=== PATIENT | male | born 1990 | race Caucasian/White ===

== ENCOUNTER 2025-08-25 11:01 | Outpatient (CLI) | payer MEDICAID, SELFPAY ==
--- OUTSIDE RECORDS SUMMARY | 2025-07-11 09:00 | XMS_ITS | Encounter Summary ---
Author Organization [place] [address] Care Team Providers Care Special Needs Babysitter Name Role Phone Rosita Perkins MD Primary Care Provider [phone] Reason for Referral * Consultation (Routine) - Pending Review Specialty Diagnoses / Procedures Referred By Contac t Referred To Contact Otolaryngology Diagnoses Seasonal allergic rhinitis, unspecified trigger Rosita Perkins MD [address] [place] [address] Phone: tel: fax: [facility] [address] [address] Phone: tel: fax: Referral ID Status Reason Start Date Expiration Date V isits Requested Visits Authorized [id number] Pending Review 07/11/2025 07/11/2026 99 99 Reason for Visit * Reason Comments Hypertension Encounter Details Date Type Department Care Team (Late st Contact Info) Description 07/11/2025 9:00 AM EDT Office Visit [facility] [address] [place] [address] Rosita Perkins MD [address] [facility] [address] Essential hypertension (Primary Dx); Seasonal allergic rhinitis, unspecified trigger Social History Tobacco Use Types Packs/Day Years Used Date Smoking Tobacco: Never Smokeless Tobacco: Current Chew Tobacco Cessation:Ready to Q uit: Not Asked; Counseling Given: Not Answered Comments:chews 2 cans a day for the last 12 years Alcohol Use Standard Drinks/Week Comments Not Currently 0 (1 standard drink = 0.6 oz pur e alcohol) 3-4 days a week Overall Financial Resource Strain (CARDIA) Answe r Date Recorded How hard is it for you to pa y for the very basics like food, housing, medical care, and heating? Not hard at all 01/20/2021 PHQ-2 Answer Date Recorded PHQ-2 Total Score 0 03/07/2025 Hunger Vital Sign Answer Date Recorded Within the past 12 months, y ou worried that your food would run out before you got the money to buy more. Never true 01/21/20 21 Within the past 12 months, t he food you bought just didn't last and you didn't have money to get more. Never true 01/20/2021 PRAPARE - Transportation Answer Date Re corded In the past 12 months, has l ack of transportation kept you from medical appointments or from getting medications? No 01/04 In the past 12 months, has l ack of transportation kept you from meetings, work, or from getting things needed for daily living? No 01/20/2021 Sexually Active Control Partners Comments Yes Female monogamous Sex and Gender Information Value Date Recorded Sex Assigned at Not on file Legal Sex Male 11:59 PM EDT Gender Identity Not on file Sexual Orientation Not on file documented as of this encounter Last Filed Vital Signs Vital Sign Reading Time Taken Comments Blood Pressure 122/102 07/11/2025 8:58 AM EDT Pulse 80 07/11/2025 8:58 AM EDT Temperature - - Respiratory Rate - - Oxygen Saturation 98% 07/11/2025 8:58 AM EDT Inhaled Oxygen Concentration - - Weight 102.5 kg (226 lb) 07/11/2025 8:58 AM EDT Height 188 cm (6' 2 ) 07/11/2025 8:58 AM EDT Body Mass Index 29.02 07/11/2025 8:58 AM EDT documented in this encounter Functional Status * Is the person deaf or does he/she have serious difficulty hearing? Answer Date of Assessment Author No 03/07/2025 1:58 PM EDT MinhanupGenevieve luquesherie Priest SUKHWINDER * Is the person blind or does he/she have serious difficulty seeing even when wearing glasses? Answer Date of Assessment Author No 03/07/2025 1:58 PM EDT MinhanupGenevieve luquesherie Priest SUKHWINDER * Does this person have serious difficulty walking or climbing stairs? Answer Date of Assessment Author No 03/07/2025 1:58 PM EDT Justindeisyrebel Rosa Pirest SUKHWINDER * Does this person have difficulty dressing or bathing? Answer Date of Assessment Author No 03/07/2025 1:58 PM EDT Justinandrei Rosa Priest SUKHWINDER * Because of a physical, mental or emotional condition, does this person have difficulty doing errands alone such as visiting a doctor's office or shopping? Answer Date of Assessment Author No 03/07/2025 1:58 PM EDT Justinandrei Rosa Priest SUKHWINDER documented as of this encounter Mental Status * Because of a physical, mental or emotional condition, does this person have serious difficulty concentrating, remembering or making decisions? Answer Entry Date Author No 03/07/2025 1:58 PM EDT Justinandrei Rosa Priest SUKHWINDER documented in this encounter Ordered Prescriptions Prescription Sig Dispense Quantity Refills Last Filled Start Date End Date lisinopriL (PRINIVIL;ZESTRIL) 10 mg Oral TabletIndications:E ssential hypertension Take 1 Tablet by mouth daily. 30 Tablet 07/11/2025 documented in this encounter Progress Notes * Rosita Perkins MD - 07/11/2025 9:00 AM EDT Vitals: 07/11/25 0858 BP: (!) 122/102 Pulse: 80 SpO2: 98% Weight: 226 lb (102.5 kg) Height: 6' 2 (1.88 m) Body mass index is 29.02 kg/m??. SUBJECTIVE: Chief Complaint Patient presents with Hypertension HPI: Hypertension: Home reporting of hypertension was reviewed at time of visit. Rajeev admits to any episodes of dizziness, lightheadedness, presyncope, syncope, headache, or chest pain. Rajeev does not report any new symptoms of possible hypertension sequelae. The patient reports that he is not having significant issues or side effects of current medications/treatments. Pt states his BP has been running high at home. Says the diastolic has been over 100. Having some headaches and feeling more restless. No longer taking BP meds, used to take Lisinopril. Review of Systems Constitutional: Negative for fever. HENT: Negative for congestion, rhinorrhea and sinus pressure. Respiratory: Negative for cough and shortness of breath. Cardiovascular: Negative for chest pain. Gastrointestinal: Negative for abdominal pain, constipation, diarrhea, nausea and vomiting. Endocrine: Negative for polydipsia, polyphagia and polyuria. Genitourinary: Negative for dysuria. Musculoskeletal: Negative for back pain. Skin: Negative for rash. Neurological: Positive for headaches. Negative for seizures. Psychiatric/Behavioral: Negative for sleep disturbance. OBJECTIVE: Physical Exam Constitutional: General: He is not in acute distress. Appearance: He is well-developed. HENT: Head: Normocephalic and atraumatic. Eyes: Conjunctiva/sclera: Conjunctivae normal. Pupils: Pupils are equal, round, and reactive to light. Cardiovascular: Rate and Rhythm: Normal rate and regular rhythm. Heart sounds: Normal heart sounds. No murmur heard. Pulmonary: Effort: Pulmonary effort is normal. Breath sounds: Normal breath sounds. No wheezing. Musculoskeletal: General: Normal range of motion. Cervical back: Normal range of motion. Skin: General: Skin is warm and dry. Findings: No rash. Neurological: Mental Status: He is alert. Cranial Nerves: No cranial nerve deficit. Psychiatric: Behavior: Behavior normal. Assessment & Plan Essential hypertension -not at goal. Restart lisinopril. Follow up in 1-2 weeks Orders: lisinopriL (PRINIVIL;ZESTRIL) 10 mg Oral Tablet; Take 1 Tablet by mouth daily. Seasonal allergic rhinitis, unspecified trigger Orders: AMB REFERRAL TO ALLERGY documented in this encounter Plan of Treatment Scheduled Referrals Name Type Priority Associated Diagnoses Orde r Schedule AMB REFERRAL TO ALLERGY Outpatient Referral Routine Seasonal allergic rhinitis, unspecified trigger Ordered: 07/11/2025 documented as of this encounter Goals Goal Patient Goal Type Associated Problems Recent Progress Patient-Stated? Author Blood Pressure < 140/90 Blood Pressure 122/102(07/11 8:58 AM EDT) No Dina Arango MA Maintain a healthy diet, exercise regularly and maintain an ideal body weight General No Keyla Covarrubias LPN Stay Tobacco Free Lifestyle No Keyla Covarrubias LPN documented as of this encounter Visit Diagnoses Diagnosis Essential hypertension- Primary Unspecified essential hypertension Seasonal allergic rhinitis, unspecified trigger documented in this encounter Care Teams Special Needs Babysitter Relationship Specialty Start Date End Date Rosita Perkins MD [address] [place], [place] [address] PCP - General Family Medicine 07/11/25 documented as of this encounter
[2025-08-25 15:32] LABS: Hematocrit 46.5 % (42.0-52.0); Hemoglobin 16.4 g/dL (14.1-18.0); Immature Granulocytes % 0.1 %; Mean Corpuscular HGB Conc 35.3 g/dL (31.8-35.4); Mean Corpuscular Hemoglobin 30.7 pg (27.0-31.2); Mean Corpuscular Volume 86.9 fl (80-94); Nucleated Red Blood Cells % 0 %; Platelet Count 276 K/mm3 (142-424); Red Blood Count 5.35 M/mm3 (4.60-6.20); Red Cell Distribution Width-SD 39.7 fL; White Blood Count 8.2 K/mm3 (4.8-10.8)
[2025-08-25 16:04] LABS: Alanine Aminotransferase 59 U/L (12-78); Albumin Level 4.6 g/dl (3.5-5.0); Albumin/Globulin Ratio 1.8 (1.1-1.8); Alkaline Phosphatase 86 U/L (38-126); Anion Gap 16.5 mEq/L (5-15); Aspartate Amino Transferase 35 U/L (17-59); Bilirubin,Total 0.7 mg/dl (0.2-1.3); Blood Urea Nitrogen 13 mg/dl (9-20); Calcium 10.0 mg/dl (8.4-10.2); Carbon Dioxide 24 mmol/L (22.0-30.0); Chloride 104 mmol/L (98-107); Cholesterol 184 mg/dl (140-200); Creatinine,Serum 1.20 mg/dl (0.66-1.25); Estimated Glomerular Filt Rate 69 ml/min (>60); GFR (African American) 83 ML/MIN (>60); Globulin 2.6 g/dL (1.3-3.2); Glucose 104 mg/dl (74-100); HDL Cholesterol 68 mg/dl (40-60); Potassium 4.5 mmoL/L (3.5-5.1); Sodium 140 mmol/L (136-145); Total Protein,Serum 7.2 g/dl (6.3-8.2); Triglycerides 131 mg/dl (30-150)
[2025-08-25 16:33] LABS: Thyroid Stimulating Hormone 0.91 uIU/mL (0.465-4.68)
[2025-08-25 16:52] LABS: Vitamin B12 319 pg/mL (239-931)
[2025-08-25 16:54] LABS: Hepatitis C Ab Qual. W/ RFX NEGATIVE (Negative)
[2025-08-25 21:19] LABS: Hemoglobin A1C 5.1 % (4.0-6.0)
[2025-08-26 05:14] LABS: Hepatitis B Surface Antigen Negative (Negative)
--- OUTSIDE RECORDS SUMMARY | 2025-08-27 11:40 | XMS_ITS | Clinical Summary ---
Author Organization [facility] are Address [address] [id number] Phone Care Team Providers Care Casino Cashier Manager Name Role Phone Judit Dhaliwal APRN Primary Care Physician Conditions or Problems Problem Name Problem Code Onset Date Status Entry Date Provider Comment Standard Description Annotate Body mass index (BMI) 27.0-27.9; adult Z68.27 (ICD-10-CM) 12/24 Active 12/24 Judit Dhaliwal APRN Body mass index [BMI] 27.0-27.9, adult Anxiety Disorder 333401669 (SNOMED CT) 12/24 Active 12/24 Judit Dhaliwal APRN Anxiety disorder Hypertension 84063004 (SNOMED CT) 12/24 Active 12/24 Judit Dhaliwal APRN Hypertensive disorder Alcohol abuse 54339668 (SNOMED CT) 12/24 Active 12/24 Judit Dhaliwal APRN Harmful pattern of use of alcohol Medications Medication Instructions Start Date Stop Date Generic Name NDC Provider FLUOXETINE HCL 20 MG CAPS TAKE 1 CAPSULE BY MOUTH ONCE A DAY 8 FLUOXETINE HCL [id number] Judit Dhaliwal APRN LISINOPRIL 20 MG TABS TAKE 1 TABLET BY MOUTH 1 TIME A DAY 8 LISINOPRIL [id number] Judit Dhaliwal APRN GNP NICOTINE MINI 2 MG LOZG USE LOZENGE FOR NICOTINE CESSATION DIRECTED ON PACKAGE INSERT 8 NICOTINE POLACRILEX [id number] Judit Dhaliwal APRN Medications Administered No information available. Allergies, Adverse Reactions, Alerts Allergy Name Reaction Description Start Date Severity Statu s Provider PENICILLIN, AMOCICILLIN Severe Active Judit Bric ker CASTER OPERATOR Results No information available. Plan of Care No information available. Procedures Code Procedure Name Date Entry Date [facility]-[id number] Medication Reconciliation [facility]-[id number] SNOMED-CT: [id number] Current Medications Documented CPT-3075F Most recent systolic blood pressure 130-139 mm Hg CPT-3079F Most recent diastoli c blood pressure 80-89 mm Hg Vital Signs Date Name Value Unit Description BMI (Body Mass Index) 27.28 kg/m2 Bod y Mass Index (Ratio) Body Temperature 98.3 [degF] temperat ure E&M Body Temperature 36.83 Effie temperat ure in centigrade E&M BP Diastolic 87 mm[Hg] blood pressu re, diastolic BP Systolic 132 mm[Hg] blood pressur e, systolic BSA (Body Surface Area) 2.20 b walt surface area Heart Rate 68 /min pulse rate Height 73 [in_us] height E&M Height 185.42 cm height in cent imeters E&M Weight Measured 206 [lb_av] weight E& M Weight Measured 206 [lb_av] weight E& M Weight Measured 93.64 kg weight in kilograms E&M Immunizations No information available. Advance Directives No information available.
--- OUTSIDE RECORDS SUMMARY | 2025-08-27 11:41 | XMS_ITS | Clinical Summary ---
Author Organization [facility] Address [address] [place] [address] Phone Care Team Providers Care Discharge Rn Name Role Phone Rosita Perkins MD Primary Care Provider [phone] Allergies Active Allergy Reactions Criticality Noted Date Comments Penicillins 01/16/2011 Medications * This document contains information received from the source organization and may not represent a complete record from that organization. cetirizine (ZYRTEC) 5 mg Oral Tablet Take by mouth daily. Active albuterol (PROVENTIL HFA;VENTOLIN HFA) 90 mcg/actuation Inhl HFA Aerosol InhalerIndication s:Wheezing Inhale 2 Puffs into the lungs every 4 hours as needed for Wheezing. 1 Each 2 02/05/2024 Active lisinopriL (PRINIVIL;ZESTRIL ) 10 mg Oral TabletIndications :Essential hypertension Take 1 Tablet by mouth daily. 30 Tablet 07/11/2025 Active Active Problems Patient Care Coordination No te Formatting of this note migh t be different from the original. 01/20/2022 No Show Nasrin Ragland and mailed letter AW 01/10/2022 No Show [facility] Care gap audit completed by Bhumika Guzman RN on 12/21/2023. Problem Noted Date Diagnosed Date Alcohol abuse 10/23/2020 Body mass index (BMI) 27.0-27.9, adult 0 Hypertension 10/23/2020 Generalized anxiety disorder 04/30/2019 History of heroin abuse 04/30/2019 Resolved Problems Problem Noted Date Diagnosed Date Resolved Date Opiate dependence 11/04/2012 04/30/2019 Opiate dependence 04/06/2012 04/06/2012 Opiate addiction 04/06/2012 04/30/2019 Encounters Date Type Department Care Team Description 07/11/2025 9:00 AM EDT Office Visit [facility] [address] [place] [address] Rosita Perkins MD Essential hypertension (Primary Dx); Seasonal allergic rhinitis, unspecified trigger from Last 3 Months Immunizations Immunization Administration Dates Next Due Rabies IM, Fibroblast Culture 09/01/2019 Td, Unspecified Formulation 02/28/2012 Tdap 09/01/2019 Surgical History Surgery Date Site/Laterality Comments ORTHOPEDIC SURGERY 11/06/2006 - 11/05/2007 rt shoulder Family History Medical History Relation Name Comments Substance Abuse Brother 2 Diabetes Father Heart Attack Father 4 Heart Disease Father Breast Cancer Maternal Aunt Diabetes Maternal Aunt Breast Cancer Maternal Grandmother Diabetes Mother High Blood Pressure Mother Diabetes Paternal Uncle Relation Name Status Comments Brother 2 Alive Father Alive Maternal Aunt Maternal Grandmother Mother Alive Paternal Uncle Social History Tobacco Use Types Packs/Day Years [...] on file Sexual Orientation Not on file Last Filed Vital Signs Vital Sign Reading Time Taken Comments Blood Pressure 122/102 07/11/2025 8:58 AM EDT Pulse 80 07/11/2025 8:58 AM EDT Temperature 36.2 C (97.2 F) 10/18/2024 10:11 AM EST Respiratory Rate 18 10/18/2024 10:11 AM EST Oxygen Saturation 98% 07/11/2025 8:58 AM EDT Inhaled Oxygen Concentration - - Weight 102.5 kg (226 lb) 07/11/2025 8:58 AM EDT Height 188 cm (6' 2 ) 07/11/2025 8:58 AM EDT Body Mass Index 29.02 07/11/2025 8:58 AM EDT Plan of Treatment Health Maintenance Due Date Last Done Comments Hepatitis B Vaccine (1 of 3 - 19+ 3-dose series) 2007 COVID-19 Vaccine (2024-2 6 season) 2025 Influenza Vaccine (#1) 2025 5 (Postponed) Annual Wellness Exam 03/07/2026 03/07/2025, 01/20/2021, 12/18/2014 (Postponed) DTaP/TDaP/Td (2 - Td or Tdap) 09/01/2029, 02/28/2012 Meningococcal B Vaccine Aged Out No l onger eligible based on patient's age to complete this topic Pneumococcal Vaccine 0-49 Aged Out No longer eligible based on patient's age to complete this topic Goals Goal Patient Goal Type Associated Problems Recent Progress Patient-Stated? Author Blood Pressure < 140/90 Blood Pressure 122/102(07/11 8:58 AM EDT) No Dina Arango MA Maintain a healthy diet, exercise regularly and maintain an ideal body weight General No Keyla Covarrubias LPN Stay Tobacco Free Lifestyle No Covarrubias, Keyla M, MOLDED GOODS OPERATOR Insurance [employer] [place] [address] [address] [employer] [place] [address] [address] [employer] [place] [address] [id number] [place] [id number] Care Teams Discharge Rn Relationship Specialty Start Date End Date Rosita Perkins MD [address] [place] [address] PCP - General Family Medicine 07/11/25
== END 2025-08-25 23:59 ==
LOC: LAB.DROPOF 08-27 11:02
PROVIDERS: PCP Nurse Practitioner; Visit Provider Nurse Practitioner
DX: E78.5 Hyperlipidemia, unspecified (principal); I10 Essential (primary) hypertension; F41.9 Anxiety disorder, unspecified; F32.A Depression, unspecified; Z11.59 Encounter for screening for other viral diseases; E66.3 Overweight; J30.9 Allergic rhinitis, unspecified
CPT/HCPCS: 80053; 80061; 82043; 82570; 82607; 83036; 84443; 85025; 86803; 87340; 87389